=== PATIENT | female | born 1950 | race Caucasian/White ===

== ENCOUNTER 2017-04-22 06:29 | Day surgery (SDC) | payer MEDICAID ==
[~2017-04-22] VITALS: Ht 162.6 cm; Wt 65.8 kg
[2017-04-22] MEDS ORDERED: ASPI81CT89 PO (07:23)
[2017-04-22] MEDS ORDERED: LISI-420 PO (07:23)
[2017-04-22] MEDS ORDERED: METO25TA PO (07:23)
[2017-04-22] MEDS ORDERED: ORE25 PO (07:23)
[2017-04-22] MEDS ORDERED: fentaNYL 0.05 MG/ML VIAL ONE (07:24)
[2017-04-22] MEDS ORDERED: MIDAZOLAM 2 MG/2 ML VIAL ONE (07:25)
[2017-04-22] MEDS ORDERED: LIDOCAINE 2% 100 MG/5 ML UJET TP ONE (07:25)
[2017-04-22] MEDS ORDERED: LIDOCAINE VISCOUS 2% 20 ML UDC ONE (07:25)
[2017-04-22] MEDS ORDERED: MIDAZOLAM 2 MG/2 ML VIAL IVP ONE (09:40)
[2017-04-22] MEDS ORDERED: fentaNYL 0.025 MG/HR PATCH TD SCH (09:40)
[2017-04-22] MEDS ORDERED: fentaNYL 0.05 MG/ML VIAL IVP ONE (10:00)
== END 2017-04-22 09:40 | disposition home or self-care (01) ==
LOC: MDS 06:29 → MMU 06:30 → MDS 09:40
PROVIDERS: ATTEND Internal Medicine Gastroenterology
DX: Z12.11 Encounter for screening for malignant neoplasm of colon (principal); K63.5 Polyp of colon; E66.3 Overweight; I10 Essential (primary) hypertension; Z72.89 Other problems related to lifestyle; Z79.82 Long term (current) use of aspirin; Z98.890 Other specified postprocedural states
CPT/HCPCS: 36415; 43239; 45385; 86677; J2250; J3010

== ENCOUNTER 2019-05-13 16:51 | Emergency (ER) | payer MEDICAID ==
[~2019-05-13] VITALS: Ht 154.9 cm; Wt 66.9 kg
[~2019-05-13 16:51] MED LIST: ASPI-1718 PO; LISI-420 PO; METO25TA PO; ORE25 PO
[2019-05-13 17:02] VITALS: BP 177/99
--- NOTE | 2019-05-13 17:10 | NUR ---
PATIENT PRESENTS TO ED WITH SOB, COUGH X 3 DAYS, REFERRED FROM URGENT CARE FOR LOW SPO2. DENIES PAIN, VSS; PATIENT POSITIONED FOR COMFORT; HOB ELEVATED; BEDRAILS UP X2; BED DOWN. ER MD MADE AWARE OF PT STATUS.
--- NOTE | 2019-05-13 17:13 | NUR ---
Patient being evaluated by DR. LEE at bedside.
[2019-05-13 17:15] VITALS: BP 165/92
--- NOTE | 2019-05-13 17:15 | NUR ---
Patient discharged BY DR. LEE, Written and verbal after care instructions given and explained. Rx of CALEB STODDARD, AUGMENTIN given. Patient educated on indication of medication including possible reaction and side effects. All questions addressed prior to discharge. ID band removed. Patient advised to follow up with PMD.
== END 2019-05-13 17:15 | disposition home or self-care (01) ==
LOC: MED 16:51
DX: J40 Bronchitis, not specified as acute or chronic (principal); Z98.890 Other specified postprocedural states; Z79.82 Long term (current) use of aspirin; Z79.899 Other long term (current) drug therapy
CPT/HCPCS: 99283